=== PATIENT | male | born 1965 | race Caucasian/White ===

== ENCOUNTER 2018-04-17 09:04 | Emergency (ER) | payer OTHER, SELFPAY ==
[2018-04-17 09:08] VITALS: BP 149/88; PULSE 65; RESP 16; TEMP 37; O2SAT 99
--- NOTE | 2018-04-17 09:15 | ED.GENADUL ---
Disposition Clinical Impression: Insect bite Disposition: HOME Condition: Good Instructions: Tick Bite (ED), Lyme Disease (ED) Additional Instructions: At this time I do not believe you exhibit the signs or symptoms of a tick bite, however if you notice a change in your rash that looks like erythema migrans, you develop aches or pains, fevers or chills, please start taking the medication immediately. If you do start taking the medication, do not take it with a multivitamin, or milk or anything containing significant amounts of calcium. If you notice any worsening of your symptoms, or any new symptoms such as vomiting, diarrhea, fever, chills, shortness of breath, chest pain, numbness, weakness, or fainting , please return immediately to the emergency department for reevaluation. Please follow up with your primary care provider as soon as possible for reassessment and reevaluation. As always, it was a pleasure participating in your medical care today. Prescriptions: Doxycycline [Vibramycin] 100 mg PO BID 14 Days cap Referrals: Leilani Zamarripa MD, [place] [Primary Care Provider] - Medical Decision Making - Medical Decision Making This is a pleasant 52-year-old male who presents for evaluation of tick bite. Physical exam shows 2 lesions on his posterior legs on the left and one on the right by the mid thigh region, which appear to have a small scab but no evidence of erythema migrans, erythema nodosum, erythema whatsoever, retained tick had a retained tick body. He did not pluck any tick from his body early this morning. Signs and symptoms are not suggestive of Lyme disease at this time as he has no other systemic symptoms. I do not see any indication for prophylaxis or medication at this time, however patient will be given a prescription for doxycycline for which she needs to immediately take if he develops any systemic symptoms, or any signs of erythema migrans. I did draw pictures of erythema migrans for him and showed him pictures online and online resources for which to access for further information. I feel that the patient's bites are most likely secondary to some other arthropod side for a tick, but we have discussed red flags which to return and for which take medications and he understands. Patient will be discharged with close PCP follow-up. I have extensively reviewed the treatment plan and discharge instructions with the patient. I have addressed all patient concerns at this time. The patient was made aware of what symptoms to monitor for that would warrant a return to the emergency department. Discussed the plan with the patient, they demonstrate verbal understanding and agreement with our assessment and plan at this time. History of Present Illness - General Chief complaint: RashLesion Stated complaint: TICK BITE Time Seen by Provider: 04/17/18 09:15 - History of Present Illness Initial comments: This is a 52-year-old male who is very healthy who has no medical problems who presents today for evaluation of a insect bite. Patient states that he was in a shower this morning when he noticed to bite cotter on his posterior legs bilaterally. Neither was pruritic. No bleeding. Small scab was noted. He was concerned for a potential tick bite and came in for evaluation. The patient does admit to mild ache in his right thigh, but he feels this might of been from recent exercise. He denies any myalgias, arthralgias, headache, fever, chills, malaise. He denies any history of Lyme disease. He denies finding any ticks, or any retained bodies. He has no other complaints at this time. Past surgical history is positive for bunionectomy bilaterally and surgery on his right eye for a pterygium. Patient denies any IV or illicit drug use. He does take a regular multivitamin. He denies any pertinent family history. He has no other complaints at this time. - Related Data Multivitamin [Multivitamins] 1 tab PO DAILY 10/24/12 Thurston-3/Dha/Epa/Fish Oil [Fish Oil Dr 500 mg Softgel] 500 mg PO DAILY 09/18/15 Triamcinolone [Kenalog 0.025% Oint] 5 gm TP BID PRN #80 ml 11/04/16 Omeprazole 20 mg PO DAILY #90 tab-cap 10/20/17 Ibuprofen [Advil] 400 mg PO PRN PRN 03/02/18 Doxycycline [Vibramycin] 100 mg PO BID 14 Days cap 04/17/18 Allergies Allergy/AdvReac Type Severity Reaction Status Date / Time gluten Allergy Intermediate Unverified 03/04/18 08:53 naproxen Allergy Intermediate Skin Rash Unverified 03/04/18 08:53 Penicillins Allergy Intermediate Skin Rash Unverified 03/04/18 08:53 terbinafine HCl Allergy Intermediate Skin Rash Unverified 03/04/18 08:53 [From Lamisil] Review of Systems Other: 10 point review of systems was performed, pertinent positives and negatives are noted in the history of present illness. Past Medical History - Past Medical History Medical history: GERD CHRIS Surgical history: herniorraphy, other (right eye surgery, bilateral bunionectomy) - Social History Alcohol use: occasionally Drug use: none General Exam - Other Other exam information: 1.Const: Well-nourished, Well-developed, appearing stated age 2.Eyes: PERRL, no conjunctival injection, and symmetrical lids. 3.ENT: Atraumatic external nose and ears. Moist MM. Neck: Symmetric, trachea midline, No thyromegaly. 4.CVS: +S1/S2, No murmurs or gallops. Peripheral pulses 2+ and equal in all extremities. Brisk capillary refill in all extremities. 5.RESP: Unlabored respiratory effort. Clear to auscultation bilaterally. No wheezes rales or rhonchi 6.GI: Soft, Nontender/Nondistended, No hepatosplenomegaly. No guarding or rebound. 7.MSK: Normocephalic/Atraumatic, Extremities w/o deformity or ttp No cyanosis or clubbing, Normal movement of all extremities 8.Skin: Warm, Dry. No rashes or lesions. No evidence of erythema migrans, erythema nodosum, or other significant lesions. He does demonstrate 2 small punctate scabbed lesions roughly 2 mm in diameter. No evidence of retained tick head or tic body. No erythema, or halo or central clearing. 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 Sensation grossly intact, no focal neurologic deficits. 10.Psych: (AAO) x3. Appropriate mood and affect
== END 2018-04-17 09:24 | disposition home or self-care (01) ==
PROVIDERS: Emergency Provider Student in an Organized Health Care Education/Training Program; PCP Family Medicine
DX: S80.862A Insect bite (nonvenomous), left lower leg, initial encounter (principal); S70.361A Insect bite (nonvenomous), right thigh, initial encounter; W57.XXXA Bitten or stung by nonvenomous insect and other nonvenomous arthropods, initial encounter
CPT/HCPCS: 99283

== ENCOUNTER 2019-10-27 15:26 | Outpatient (CLI) | payer OTHER, SELFPAY ==
--- NOTE | 2019-10-27 15:30 | DI.RAD_ITS ---
EXAM: XR SHOULDER LT COMPLETE 2+V INDICATION: left shoulder pain M25.512, G89.29 CHRONIC PAIN. COMPARISON: RIGHT SHOULDER COMPLETE from 08/04/2013 TECHNIQUE: 2D digital imaging was performed. FINDINGS: No fracture or dislocation is seen. There are minimal degenerative changes at the AC joint. There i s no significant inferior spurring. The glenohumeral joint is unremarkable. No tendon or joint spac e calcifications are seen. The humeral head appears normally positioned. IMPRESSION: Minute minimal degenerative changes. DATA REPOSITORY: RADIATION DOSE DELIVERED:
--- NOTE | 2019-10-27 15:30 | DI.RAD_ITS ---
EXAM: XR CERVICAL SPINE COMP 4-5V INDICATION: neck and left shoulder pain/ do obliques please, M54.2 CERVICALGIA. COMPARISON: CERV SP.WITH OBL OR FLEX/EXT from 08/04/2013 TECHNIQUE: 2D digital imaging was performed. FINDINGS: There is mild patient motion on the view. The alignment is normal. The disc spaces are well maintai meme in height. There are mild facet joint degenerative changes, greatest at C 7- T1. The neural for tatyana are not optimally profiled. There is apparent neural foraminal narrowing at C6-7 bilaterally, left greater than. IMPRESSION: Facet degenerative changes greatest at C7-T1. Question of bilateral neural foraminal narrowing C6-7. DATA REPOSITORY: RADIATION DOSE DELIVERED:
== END 2019-10-27 15:46 ==
PROVIDERS: PCP Family Medicine; Visit Provider Family Medicine
DX: M25.512 Pain in left shoulder (principal); M54.2 Cervicalgia; M47.813 Spondylosis without myelopathy or radiculopathy, cervicothoracic region; G89.29 Other chronic pain; M19.012 Primary osteoarthritis, left shoulder
CPT/HCPCS: 72050; 73030

== ENCOUNTER 2020-06-21 02:06 | Outpatient (CLI) | payer OTHER, SELFPAY ==
[2020-06-21 17:19] LABS: ALT 91 U/L (16-63); AST 34 U/L (15-37); Albumin 4.3 g/dL (3.4-5.0); Alkaline Phosphatase 70 U/L (46-116); Anion Gap 5.4 mmol/L (3-11); BUN 19 mg/dL (7-18); Bilirubin, Total 0.3 mg/dL (0.2-1.0); CO2 30.6 mmol/L (21.0-32.0); CREATININE 1.16 mg/dL (0.70-1.30); Calcium 8.9 mg/dL (8.5-10.1); Chloride 102 mmol/L (98-107); Glucose 104 mg/dL (74-106); Potassium 3.8 mmol/L (3.5-5.1); Sodium 138 mmol/L (136-145); Total Protein 7.4 g/dL (6.4-8.2)
== END 2020-06-21 02:26 ==
PROVIDERS: PCP Family Medicine; Visit Provider Family Medicine
DX: R79.89 Other specified abnormal findings of blood chemistry (principal)
CPT/HCPCS: 36415; 80053

== ENCOUNTER 2020-08-10 02:19 | Outpatient (CLI) | payer OTHER, SELFPAY ==
[2020-08-13 12:10] LABS: COVID-19 RT-PCR Result NEGATIVE (Negative)
== END 2020-08-10 02:39 ==
PROVIDERS: PCP Family Medicine; Visit Provider Family Medicine
DX: Z20.828 Contact with and (suspected) exposure to other viral communicable diseases (principal); Z11.59 Encounter for screening for other viral diseases
CPT/HCPCS: U0003

== ENCOUNTER 2020-10-16 02:28 | Outpatient (CLI) | payer OTHER, SELFPAY ==
[2020-10-16 17:35] LABS: ALT 93 U/L (16-63); AST 32 U/L (15-37); Albumin 3.9 g/dL (3.4-5.0); Alkaline Phosphatase 81 U/L (46-116); Anion Gap 10.8 mmol/L (3-11); BUN 18 mg/dL (7-18); Bilirubin, Total 0.2 mg/dL (0.2-1.0); CO2 26.2 mmol/L (21.0-32.0); Calcium 8.8 mg/dL (8.5-10.1); Chloride 104 mmol/L (98-107); Glucose 106 mg/dL (74-106); Potassium 3.7 mmol/L (3.5-5.1); Sodium 141 mmol/L (136-145); Total Protein 7.2 g/dL (6.4-8.2)
== END 2020-10-16 02:29 | disposition home or self-care (01) ==
LOC: LBO 02:29
PROVIDERS: PCP Family Medicine; Visit Provider Family Medicine
DX: R79.89 Other specified abnormal findings of blood chemistry (principal)
CPT/HCPCS: 36415; 80053

== ENCOUNTER → 2021-03-12 14:12 | Outpatient (BNVA) | payer OTHER, SELFPAY | PROVIDERS: PCP Family Medicine; Referring Provider Family Medicine; Visit Provider Student in an Organized Health Care Education/Training Program | DX: S43.432A Superior glenoid labrum lesion of left shoulder, initial encounter (principal); X58.XXXA Exposure to other specified factors, initial encounter | CPT/HCPCS: 99203; 99213 ==

== ENCOUNTER → 2021-05-14 13:05 | Outpatient (BNVA) | payer OTHER, SELFPAY | PROVIDERS: PCP Family Medicine; Referring Provider Family Medicine; Visit Provider Student in an Organized Health Care Education/Training Program | DX: S43.432D Superior glenoid labrum lesion of left shoulder, subsequent encounter (principal); X58.XXXD Exposure to other specified factors, subsequent encounter | CPT/HCPCS: 99213 ==

== ENCOUNTER 2021-06-06 02:00 | Outpatient (CLI) | payer OTHER, SELFPAY ==
--- NOTE | 2021-06-06 06:30 | DI.MRI_ITS ---
Exam(s) MR UPPER JOINT LT WO CLINICAL HISTORY: persistent mechanical symptoms,slap lesion lt shoulder,s43.432a. TECHNIQUE: Multiplanar multisequence MRI was performed. COMPARISON: None FINDINGS: MR examination of the shoulder was performed according to the usual protocol. There is no significant effusion of the glenohumeral joint. Trace fluid in the subacromial subdeltoi d bursa. Bones and labrum: There is abnormal signal in the distal clavicle adjacent to the AC joint, mild flui d is noted in the joint. There is slight superior deformity of the myotendinous junction of the supr aspinatus consistent mild impingement this site.. Glenoid labrum is not well visualized on this noncontrast examination, requisition raises the possibi lity SL AP lesion and there are areas of cysts subtle signal change in the labrum both anteriorly and posteriorly in the superior portion of the labrum, this may well represent a nondisplaced SLAP tear. Rotator cuff: Supraspinatus, subscapularis, infraspinatus, and teres minor muscles and tendons show mildly abnormal signal consistent with tendinosis. No focal rotator cuff tear identified. Rotator interval structures are unremarkable with no evidence of a tear. Biceps tendon and anchor: Biceps tendon and anchor show normal signal and no evidence of a tear. Any ps tendon is normally positioned in the bicipital groove. IMPRESSION: Possible SLAP tear. Mild rotator cuff tendinosis without evidence of a significant rotator cuff tear . DATA REPOSITORY:
== END 2021-06-06 02:20 ==
PROVIDERS: PCP Family Medicine; Visit Provider Student in an Organized Health Care Education/Training Program
DX: M67.814 Other specified disorders of tendon, left shoulder (principal)
CPT/HCPCS: 73221

== ENCOUNTER → 2021-06-19 08:42 | Outpatient (BNVA) | payer OTHER, SELFPAY | PROVIDERS: PCP Family Medicine; Referring Provider Family Medicine; Visit Provider Student in an Organized Health Care Education/Training Program | DX: S43.432D Superior glenoid labrum lesion of left shoulder, subsequent encounter (principal); M75.52 Bursitis of left shoulder; X58.XXXD Exposure to other specified factors, subsequent encounter | CPT/HCPCS: 99214 ==

== ENCOUNTER 2021-07-09 08:31 | Outpatient (CLI) | payer OTHER, SELFPAY ==
[2021-07-09 11:06] LABS: Source Nasal/Nares
[2021-07-09 17:36] LABS: COVID-19 PCR Negative (Negative)
== END 2021-07-09 08:32 | disposition home or self-care (01) ==
LOC: LBO 08:31
PROVIDERS: PCP Family Medicine; Visit Provider Student in an Organized Health Care Education/Training Program
DX: Z20.822 Contact with and (suspected) exposure to COVID-19 (principal); Z01.818 Encounter for other preprocedural examination
CPT/HCPCS: 87635

== ENCOUNTER 2021-07-12 08:48 | Day surgery (SDC) | payer OTHER, SELFPAY ==
[2021-07-12] VITALS (9 sets, daily range): BP systolic 108–146; BP diastolic 77–102; PULSE 68–78; RESP 14–20; TEMP 35.8–36.8; O2SAT 69–100; BMI 29.4
--- NOTE | 2021-07-12 07:10 | W.ANESPRE ---
General Info Date of Service Date Performed: 07/12/21 Height: 5 ft 7 in Weight: 85.275 kg Body Mass Index (BMI): 29.4 Surgical Procedure: Operation Date: 07/12/21 11:10 Proposed Procedures Side Surgeon p Shoulder Arthroscopy w/extensive debridement, biceps tenodesis, and subacromial decompression Left John Solares MD Meds Allergies and Home Medications Allergies Allergy/AdvReac Type Severity Reaction Status Date / Time gluten Allergy Intermediate Verified 07/12/21 09:11 naproxen Allergy Intermediate Skin Rash Verified 07/12/21 09:11 Penicillins Allergy Intermediate Skin Rash Verified 07/12/21 09:11 terbinafine HCl Allergy Intermediate Skin Rash Verified 07/12/21 09:11 [From Lamisil] losartan AdvReac felt poorly Verified 07/12/21 09:11 Home Medication Medication Instructions Recorded multivitamin 1 tab PO DAILY 10/24/12 Fish Oil 500 mg PO DAILY 09/18/15 triamcinolone acetonide 5 gm TOPICAL BID PRN #80 ml 11/04/16 omeprazole 20 mg PO DAILY #90 tab-cap 10/20/17 cholecalciferol (vitamin D3) 125 125 mcg PO DAILY 10/27/19 mcg (5,000 unit) tablet aspirin 81 mg PO DAILY 14 Days #14 tab 07/12/21 ibuprofen 800 mg PO BID PRN #40 tab 07/12/21 oxycodone 5 - 10 mg PO Q4H PRN #14 tab 07/12/21 Current Visit Medications: Current Medications Generic Name Dose Route Start Last Admin Trade Name Freq PRN Reason Stop Dose Admin Ringer's Solution 1,000 mls @ 100 mls/hr 07/12/21 06:00 IV 08/10/21 23:59 INFUSION WANDER Cefazolin Sodium/Dextrose 2 gm in 50 mls @ 100 mls/hr 07/12/21 06:00 Ancef Duplex IVPB 07/12/21 16:00 PREOP WANDER IV Miscellaneous Supplies 1 each 07/12/21 06:00 Iv Access IV 08/10/21 23:59 DIRECTED WANDER Sodium Chloride 0 ml 07/12/21 06:00 Normal Saline Flush 10 Ml Syr IV 08/10/21 23:59 PRN PRN Sodium Chloride 0 ml 07/12/21 06:00 Normal Saline 10 Ml Vial IJ 08/10/21 23:59 DIRECTED PRN Sterile Water 0 ml 07/12/21 06:00 Water,Injection,Sterile 10 Ml Vial IJ 08/10/21 23:59 DIRECTED PRN PFSH Active Problems Active Problems: Problem Status Onset Code Bursitis of left shoulder M75.52 SLAP lesion of left shoulder S43.432A Skin tag L91.8 Elevated LFTs R79.89 Strain of right quadriceps muscle, fascia and tendon, initial encounter 03/04/18 S76.111A Plantar fasciitis, bilateral 03/16/17 M72.2 Peripheral polyneuropathy 06/05/16 G62.9 Obstructive sleep apnea syndrome 03/01/13 G47.33 Meralgia paresthetica of left side 06/05/16 G57.12 Mantoux: positive R76.11 Hearing loss 03/07/14 H91.90 Diverticula of colon 10/08/17 K57.30 Dermatitis herpetiformis 06/15/14 L13.0 Chronic left shoulder pain 02/25/18 M25.512, G89.29 Cervical pain 12/18/14 M54.2 Annual physical exam 04/10/15 Z00.00 Abnormal auditory perception 03/27/14 H93.299 Abnormal EKG 04/26/14 R94.31 Medical History Active Problem List Abnormal EKG (Chronic 04/26/14) Abnormal auditory perception (Chronic 03/27/14) Annual physical exam (Acute 04/10/15) Cervical pain (Chronic 12/18/14) Chronic left shoulder pain (Chronic 02/25/18) Dermatitis herpetiformis (Chronic 06/15/14) Diverticula of colon (Chronic 10/08/17) Hearing loss (Chronic 03/07/14) Mantoux: positive (Chronic) Meralgia paresthetica of left side (Chronic 06/05/16) Obstructive sleep apnea syndrome (Chronic 03/01/13) Peripheral polyneuropathy (Chronic 06/05/16) Plantar fasciitis, bilateral (Chronic 03/16/17) Strain of right quadriceps muscle, fascia and tendon, initial encounter (Chronic 03/04/18) Elevated LFTs (Acute) Skin tag (Acute) SLAP lesion of left shoulder (Acute) Bursitis of left shoulder (Acute) Medical History CHRIS (obstructive sleep apnea) Surgical History Surgical History (Updated 07/12/21 @ 09:08 by Nu Brito) BUNIONECTOMY Colonoscopy - MAC (09/30/17) CONCUSION (~1972) Hx of vasectomy PROCEDURES PTERYGIUM EXCISION NEC, 2010 right eye Tobacco Smoking/Tobacco Use Status: Never Passive smoking exposure: Yes Second hand exposure: Yes Alcohol Alcohol Intake: current Alcohol intake frequency: a few times a month Alcohol type: hard liquor Substance Use Substance use: Never Substance use type: does not use Vital Signs and Lab Results Lab Results Blood Type / Crossmatch: No Data to Display Complete Blood Count: No Data to Display Complete Metabolic Panel: No Data to Display Liver Function Panel: No Data to Display Coagulation Panel: No Data to Display Cardiac Panel: No Data to Display Arterial Blood Gas: No Data to Display Venous Blood Gas: No Data to Display Pancreas Panel: No Data to Display Thyroid Panel: No Data to Display Infectious Disease: Coronavirus (COVID-19)(PCR) Negative (Negative) 07/09/21 08:32 07/09/21 Coronavirus 2019 Source Nasal/Nares 07/09/21 08:32 07/09/21 Blood Cultures: No Data to Display Toxicology Panel: No Data to Display Anesthesia Assessment and Plan Anesthesia History Personal History: No History of Anesthesia Complications Family History: No Family History of Anesthesia Complications Exercise Tolerance Exercise Tolerance: Metabolic Equivalents>4 Pertinent Negatives Pertinent Negatives: No Symptoms of GERD (Med controlled), No Major Cardiovascular Symptoms or Complaints, No Major Pulmonary Symptoms or Complaints and No History of CVA/TIA Cardiac & Pulmonary Exam Cardiac Exam: Normal S1/S2 Heart Sounds Pulmonary Exam: Clear Bilateral Breath Sounds Implantable Cardiac Device Does patient have a Pacemaker or an ICD?: No Airway Exam Known Difficult Airway: No Mallampati Class: 3 Mouth Opening: Normal (> 3cm) Thyromental Distance: Greater than 3 cm Neck Range of Motion: Full ROM Neck Circumference: Normal Teeth Condition: Normal Dentition ASA Classification ASA Score: ASA 2 Emergency Case?: No NPO Status NPO Status: NPO Clears >2 hours, Solids >8 hours Anesthesia Plan Resuscitation Status: Full Code Anesthesia Technique: General Anesthesia Airway Planned: Endotracheal Tube Pain Management: Surgeon and patient request nerve block Monitors Used: Standard Monitors
[2021-07-12] MEDS: Lactated Ringers 1,000 ML 100 ML IV ×2 (10:00→13:33)
--- NOTE | 2021-07-12 10:40 | W.ANESNERVE ---
Nerve Block Single Injection Procedure Date and Time Date Performed: 07/12/21 Procedure Start: 10:16 Location Where Procedure Performed Procedure Location: Day Surgery Unit Reason Performed: Postoperative Analgesia Requesting Provider: John Solares Timeout Performed Timeout Performed: Yes Monitoring Used ECG, Blood Pressure and SpO2 Sterility Sterility: Hand Hygiene and Surgical Cap Sedation Given During Procedure Sedation Given (Indicate Dose Given): No Sedation given Patient Mental Status Patient Mental Status: Awake Nerve Block 1st Nerve Block: Laterality: Left Block Type: Interscalene Needle / Catheter Used: 100mm SonoPlex II Local Anesthetic Bolus (Indicate Dose Given): Injected in 3-5ml increments after negative blood aspiration, Bupivacaine 0.5% Dose:: 10 ml and Exparel Dose:: 10 ml Additives (Indicate Dose Given): None Ultrasound: Sterile probe cover and gel used Ultrasound Image Saved?: Yes Nerve Stimulator: Not Used Paresthesia: None Procedure Tolerated: No Complications Procedure Outcome: Successful Performed By: Lonnie Pena
[2021-07-12] MEDS: ceFAZolin 2 GM/50 ML BAG IVPB (12:29)
--- NOTE | 2021-07-12 13:43 | W.PM.DSUDISC ---
Discharge Plan Disposition Patient Disposition: HOME Condition: Stable Discharge Details Reason For Visit: Left shoulder surgery Attending Provider: John Solares Primary Care Provider: Leilani Zamarripa Home Meds and New Rx's Prescriptions: New ibuprofen 800 mg tablet 800 mg PO BID PRN (Reason: pain, moderate) Qty: 40 RF: 0 aspirin 81 mg tablet,delayed release (DR/EC) 81 mg PO DAILY 14 Days Qty: 14 RF: 0 oxycodone 5 mg tablet 5 - 10 mg PO Q4H PRN (Reason: moderate to severe pain) Qty: 14 RF: 0 Continued cholecalciferol (vitamin D3) 125 mcg (5,000 unit) tablet 125 mcg PO DAILY RF: 0 triamcinolone acetonide 80 GM ointment 5 gm Topical BID PRNQty: 80 RF: 2 omeprazole 20 MG tablet,delayed release (DR/EC) 20 mg PO DAILY Qty: 90 RF: 12 multivitamin 1 EACH capsule 1 tab PO DAILY RF: 0 Fish Oil 500 MG capsule,delayed release(DR/EC) 500 mg PO DAILY RF: 0 Discontinued ibuprofen [Advil] 200 MG tablet 400 mg PO PRN PRNRF: 0 Discharge Instructions Additional Instructions: Surgery: Left shoulder arthroscopy with biceps tenodesis, extensive debridement, and subacromial compression. Activity: You should gradually increase range of motion motion and use of your shoulder. Please perform daily stretching exercises. You may use your shoulder for all regular activities. Avoid heavy lifting, reaching overhead, and lifting away from body for approximately 6 to 8 weeks. You may use the sling whenever you are out of the house for a few weeks. At home it is best to remove the sling and rest the arm on a pillow at your side or support the operative side with your other hand. A physical therapy prescription will be sent electronically to start in about 2 weeks. Prescriptions: Aspirin 81 mg take 1 daily to prevent a blood clot for 2 weeks Ibuprofen 800 mg take 1 every 12 hours with a meal as needed for moderate pain Oxycodone 5 mg take 1-2 every 4-6 hours as needed for severe pain You may use [id number] Tylenol (acetaminophen) as needed for mild pain. These pain medications may be taken all at once or in different combinations as needed. Also, recommend Colace (docusate) as a stool softener as surgery and pain medicine cause constipation. Dressings: Remove shoulder bandage after 3 days. Leave the sticky Steri-Strips in place until they fall off or remove them after you shower. Cover the incisions with Band-Aids or leave them open to air. You may shower after 5 days. Follow-up: 10-[address] Solares You may take off the leg compression stockings this evening at home. You may also leave them on a few days longer if you have a history of leg swelling or edema. Let us know right away if you develop any redness, drainage, fevers, chest pain, or trouble breathing. Do not drink alcohol or drive for at least 24 hours after anesthesia. Please call the office during business hours with any questions or concerns. Discharge Orders Discharge Orders: Discharge Order (Routine); Ordered 07/12/21 Ordered By: John Solares DS: Diagnosis Discharge Diagnosis (1) Bursitis of left shoulder: Status: Acute (2) SLAP lesion of left shoulder: Status: Acute
[2021-07-12] MEDS: EPINEPHrine 30 MG/30 ML VIAL (13:44)
--- NOTE | 2021-07-12 14:56 | W.ANESPOSTOP ---
Postoperative Evaluation Date, Time and Location Date Performed: 07/12/21 Time Performed: 14:57 Patient Location: Day Surgery Unit Vital Signs Most Recent Imported Vital Signs: Most Recent Vital Signs Temp Pulse Resp BP Pulse Ox 36.7 C 68 15 108/86 96 07/12/21 14:37 07/12/21 14:37 07/12/21 14:37 07/12/21 14:37 07/12/21 14:37 Pain Score Most Recent Pain Score: Most Recent Pain Score Pain Level 0 07/12/21 14:37 Assessment Mental Status: Awake (Alert & Oriented to Patient Baseline) Airway and Respiratory Function: Patent airway with normal (patient baseline) respiratory exam Cardiovascular Function: Hemodynamically Stable Hydration Status: Adequately Hydrated Nausea & Vomiting: No Nausea or Vomiting Pain: Pt. Denies Any Pain Peripheral Nerve Block: Regional nerve block not resolved at time of post operative discharge Postoperative Comments:: Reports sore throat. Discussed that should resolve in 24-48 hours and to let us know if does not resolve.
--- NOTE | 2021-07-12 15:47 | ROE_ITS ---
Date of service: 07/12/21 Time of Service: 13:15 Operative Note Operative Note DATE OF PROCEDURE: 07/12/21 PRE-OP DIAGNOSIS: Left: 1. SLAP tear 2. Bursitis POST-OP DIAGNOSIS: same PROCEDURE: Left: 1. Arthroscopic biceps tenodesis, CPT# 80547. This involved arthroscopically suturing and reattaching the long head of the biceps tendon to the proximal humerus at the superior margin of the bicipital groove with a screw at the correct tension. 2. Extensive debridement, CPT# 61426. This involved using arthroscopic hand instruments, power instruments, and radiofrequency instruments to release the long head of the biceps tendon and debride areas of labral tearing, synovitis, SLAP tearing, and partial articular rotator cuff tearing within the glenohumeral joint anteriorly, superiorly and posteriorly. 3. Subacromial decompression, CPT# 50844. This involved using arthroscopic power instruments and a radiofrequency wand to complete a bursectomy. The faculty i on call medical assistant was medically required in order to help assist in techniques above, which require positioning the arm, holding the arthroscope, and manipulating multiple instruments and sutures at the same time. This cannot be done without the help of an experienced faculty i on call medical assistant. SURGEON: John Solares PHP ARCHITECT: Jennifer Peralta ANESTHESIA TYPE: General LMA/ETT and Primary Nerve Block Refer to Anesthesia Record ESTIMATED BLOOD LOSS: 5 PATHOLOGY: none sent Patient was transported to: PACU Patient's condition: stable Implants: Arthrex: 4.75mm SwiveLocks x 1 Indications: The patient was diagnosed with the above conditions and appropriately indicated for surgical intervention. Please see complete medical record for details. Findings: Exam under anesthesia: Full range of motion, no instability Glenohumeral joint: Anterior labral fraying, unstable biceps tendon anchor with type II SLAP tear, minimal posterior labral fraying. Mild anterior margin supraspinatus articular sided partial tear fraying. Bulbous medial superior subscapularis with no tearing or detachment from lesser tuberosity. Probed as cyst without any fluid expressed. Intact infraspinatus. Intact articular cartilage. Subacromial space: Moderate bursitis. Intact rotator cuff. No subacromial bone spur. Procedure Description: In the operating room, general anesthesia was induced. Bilateral shoulders were examined. The patient was positioned in the beachchair position. All bony prominences were well-padded. Preoperative antibiotics were administered. The shoulder was prepped and draped in the usual sterile fashion. The correct patient, procedure, and side of the procedure were all verified prior to incision. Starting through the posterior portal a standard complete diagnostic arthroscopy was performed of the glenohumeral joint including inspection of the long head of the biceps, anterior and superior labrum, subscapularis tendon, supraspinatus and infraspinatus tendons, and axillary recess. The glenoid and humeral head cartilage as well as the posterior labrum were inspected from an anterior viewing portal. Significant findings and interventions noted above. Rigid cannula was inserted anteriorly. An all-arthroscopic suprapectoral biceps tenodesis was performed through an anterior portal using a Loop N Tack method with a SutureTape FiberLink cinched around and through the tendon. The biceps was tenotomized from the labrum and fixated with a suture anchor at the superior margin of the bicipital groove. The biceps stump on either and was smoothed and mushroomed using the radiofrequency wand. Starting through the posterior portal, the arthroscope was directed into the subacromial space. A lateral 50 yard line lateral portal was omitted. A combination of power instruments and a radiofrequency ablator were used to debride bursitis anteriorly, posteriorly, and laterally. Coracoacromial ligament was preserved. The bursectomy was completed rotating the arm internal/external rotation and the rotator cuff was thoroughly inspected with findings noted above. The shoulder was drained of arthroscopic fluid. All portal sites were copiously irrigated. These incisions were closed using 3-0 Monocryl in a buried fashion and then covered with Mastisol, Steri-Strips, Xeroform, dry gauze, and ABDs. The dressings were covered and secured with Medipore tape. The operative extremity was placed into a sling for immobilization. The patient awoke from anesthesia without complication and was transferred to the recovery room in a stable condition.
== END 2021-07-12 16:15 | disposition home or self-care (01) ==
PROVIDERS: PCP Family Medicine; Visit Provider Student in an Organized Health Care Education/Training Program
PROC: (CPT 29805; principal; 2021-07-12 11:00)
DX: M75.52 Bursitis of left shoulder (principal); S43.432A Superior glenoid labrum lesion of left shoulder, initial encounter; X58.XXXA Exposure to other specified factors, initial encounter; G47.33 Obstructive sleep apnea (adult) (pediatric); M75.82 Other shoulder lesions, left shoulder
CPT/HCPCS: 29828; 29823; 29826; J0690; J1100; J2370; J2405; J2704

== ENCOUNTER → 2021-07-24 09:14 | Outpatient (BNVA) | payer OTHER, SELFPAY | PROVIDERS: PCP Family Medicine; Referring Provider Family Medicine; Visit Provider Student in an Organized Health Care Education/Training Program | DX: Z47.89 Encounter for other orthopedic aftercare (principal); M75.52 Bursitis of left shoulder ==

== ENCOUNTER → 2021-09-17 07:57 | Outpatient (BNVA) | payer OTHER, SELFPAY | PROVIDERS: PCP Family Medicine; Referring Provider Family Medicine; Visit Provider Student in an Organized Health Care Education/Training Program | DX: Z47.89 Encounter for other orthopedic aftercare (principal) ==

== ENCOUNTER 2022-09-05 01:32 | Outpatient (CLI) | payer OTHER, SELFPAY ==
[2022-09-05 07:30] LABS: HGB 14.7 g/dL (13.5-17.5); MCH 31.1 pg (27.0-33.0); MCV 89 fL (80-95); MPV 10.3 fL (8.0-11.0); Platelet Count 209 10^3/uL (130-400); RBC 4.73 10^6/uL (4.36-5.78); RDW 12.4 % (11.8-14.1); RDW-SD 40.8 fL; WBC 5.57 10^3/uL (4.4-10.8)
[2022-09-05 07:52] LABS: ALT 54 U/L (16-63); AST 31 U/L (15-37); Albumin 3.9 g/dL (3.4-5.0); Alkaline Phosphatase 75 U/L (46-116); BUN 25 mg/dL (7-18); Bilirubin, Total 0.5 mg/dL (0.2-1.0); CREATININE 1.1 mg/dL (0.70-1.30); Calculated LDL 130 mg/dL (<100); Chloride 105 mmol/L (98-107); Cholesterol 206 mg/dL (<200); Estimated GFR 78.79 (mL/min/1.73m2); Glucose 119 mg/dL (74-106); HDL Cholesterol 61 mg/dL (40-60); Potassium 3.6 mmol/L (3.5-5.1); Sodium 141 mmol/L (136-145); TSH (W/Ref FT4) 1.37 uIU/mL (0.36-3.74); Total Protein 7.3 g/dL (6.4-8.2); Triglyceride 79 mg/dL (<150)
[2022-09-05 10:10] LABS: Lab Add On Test DONE
[2022-09-05 23:10] LABS: Estimated Average Glucose 114 mg/dL; Hemoglobin A1C 5.6 % (<5.7)
== END 2022-09-05 01:33 | disposition home or self-care (01) ==
PROVIDERS: PCP Family Medicine; Visit Provider Family Medicine
DX: Z00.00 Encounter for general adult medical examination without abnormal findings (principal); R73.09 Other abnormal glucose
CPT/HCPCS: 36415; 80053; 80061; 85027; 83036; 84443

== ENCOUNTER 2022-09-21 16:00 | Emergency (ER) | payer OTHER, SELFPAY ==
[2022-09-21 16:12] VITALS: BP 117/72; PULSE 97; RESP 18; TEMP 36.9; O2SAT 95
[2022-09-21] MEDS: Ondansetron O.D.T. 4 MG TABEF (17:27)
[2022-09-21] MEDS: Normal Saline 1,000 ML 1000 ML IV (18:34)
[2022-09-21 18:36] LABS: Abs Immature Grans 0.03 10^3/uL (0.0-0.06); Absolute Basophil Count 0.02 10^3/uL (0.0-0.2); Absolute Monocyte Count 0.28 10^3/uL (0.1-0.8); Absolute Neutrophil Count 8.62 10^3/uL (1.2-6.7); Basophils % 0.2; HCT 45.5 % (40.0-50.0); HGB 15.4 g/dL (13.5-17.5); Immature Grans % 0.3; Lymphocytes % 2.2; MCH 30.9 pg (27.0-33.0); MCHC 33.8 % (32.0-36.0); MCV 91 fL (80-95); MPV 10.5 fL (8.0-11.0); Monocytes % 3.1; Neutrophils % 94.2; Platelet Count 208 10^3/uL (130-400); RBC 4.99 10^6/uL (4.36-5.78); RDW 12.3 % (11.8-14.1); RDW-SD 40.7 fL; WBC 9.15 10^3/uL (4.4-10.8)
[2022-09-21 18:52] LABS: ALT 32 U/L (16-63); AST 21 U/L (15-37); Albumin 2.8 g/dL (3.4-5.0); Alkaline Phosphatase 57 U/L (46-116); Anion Gap 4.7 mmol/L (3-11); BUN 20 mg/dL (7-18); Bilirubin, Total 0.4 mg/dL (0.2-1.0); CO2 24.3 mmol/L (21.0-32.0); CREATININE 0.9 mg/dL (0.70-1.30); Chloride 114 mmol/L (98-107); Estimated GFR 100.24 (mL/min/1.73m2); Glucose 104 mg/dL (74-106); Lipase 22 U/L (73-393); Potassium 3.2 mmol/L (3.5-5.1); Sodium 143 mmol/L (136-145); Total Protein 5.2 g/dL (6.4-8.2)
[2022-09-21 18:55] LABS: Bilirubin Negative (Negative); Blood Negative (Negative); Clarity Clear (Clear); Glucose Negative (Negative); Ketones Negative (Negative); Leukocyte Esterase Negative (Negative); Nitrite Negative (Negative); Specific Gravity 1.025 (1.005-1.025); Urobilinogen 0.2 EU/dL (Up TO 0.2)
[2022-09-21 18:55] LABS: Calcium 6.4 mg/dL (8.5-10.1)
--- NOTE | 2022-09-21 19:00 | RT.EKG_ITS ---
APPROVED REPORT Exam: Resting ECG Reason for Exam: Hypocalcemia Patient Location: E HR:96 bpm ECG Measurements Heart Rate 96 AXIS MO 174 P -4 QRSd 91 QRS -49 QT 343 T 47 QTc 433 Conclusion Sinus rhythm Inferior Q >35mS, II III aVF - previously noted
--- NOTE | 2022-09-21 19:49 | ED.GENADUL_ITS ---
Discharge Plan Disposition Patient Disposition: Home Condition: Improving Discharge Details Clinical Impression: Nausea & vomiting, Hypocalcemia, Hypokalemia Primary Care Provider: Leilani Zamarripa ED Provider: Natalio Leon Home Meds and New Rx's Prescriptions: New ondansetron 4 mg tablet,disintegrating 4 mg PO TID PRN3 Days Qty: 9 0RF calcium carbonate [Calcium 500] 500 mg calcium (1,250 mg) tablet,chewable 500 mg PO DAILY Qty: 7 0RF Continued metoprolol succinate 25 mg tablet extended release 24 hr See Rx Instructions PO DAILY Qty: 135 5RF Rx Instructions: 1 in am and 1/2tab in PM orally daily; cholecalciferol (vitamin D3) 125 mcg (5,000 unit) tablet 125 mcg PO DAILY triamcinolone acetonide 80 GM ointment 5 gm Topical BID PRNQty: 80 Rx Instructions: 0.1% omeprazole 20 MG tablet,delayed release (DR/EC) 20 mg PO DAILY Qty: 90 12RF multivitamin 1 EACH capsule 1 tab PO DAILY Fish Oil 500 MG capsule,delayed release(DR/EC) 500 mg PO DAILY ibuprofen 800 mg tablet 800 mg PO BID PRN (Reason: pain, moderate) Qty: 40 0RF Discharge Instructions Instructions: Hypokalemia (ED), Acute Nausea and Vomiting (ED), Hypocalcemia (ED) Additional Instructions: Zofran as directed. Be sure to have foods high in electrolytes. I have given you a small supplementation of calcium, take this as directed. Please watch for new or worsening symptoms and return to the ER for any concerns. As we discussed, your calcium and potassium are both low today. I would like you to contact your primary care provider tomorrow to discuss your ER visit and need for outpatient reevaluation. You will likely need to have your electrolytes rechecked and if they remain low you may require further work-up and/or potential supplementation. Discharge Data Discharge Date/Time-TO BE ENTERED AT DEPARTURE: 09/21/22 21:03 Medical Decision Making This is a 57-year-old male presenting for nausea and vomiting that began around 9:00 this morning. Clinically he appears well, nontoxic. He appears hemodynamically stable. Plan to obtain IV access, give IV fluid, Zofran, and routine screening laboratory values. Laboratory values reveal a white blood cell count of 9.15, no evidence of anemia or thrombocytopenia. Absolute neutrophils of 8.62. Electrolytes reveal a sodium of 143 potassium 3.2 anion gap 4.7 creatinine 0.9 with a GFR of 100.24. Glucose 104. Calcium 6.4. LFTs unremarkable, lipase 22. Urinalysis unremarkable. Given his potassium and calcium, will obtain EKG. patient denies any muscle cramping or spasms, weakness, paresthesias, confusion, etc. Plan to provide IV calcium supplementation as well as oral calcium and magnesium supplementation On reevaluation patient remains asymptomatic. Reports significant improvement of his symptoms with the Zofran. He is now tolerating p.o. intake, ice, tracy zulma without difficulty. We discussed his electrolyte abnormalities, tells me he has recently changed his diet secondary to concern of elevated glucose levels. He reports today no p.o. intake. Denies any diarrhea. We did discuss food and drink high in electrolytes, potassium, calcium, etc. I will also provide a short-term prescription of oral calcium as it is level today it was quite low at 6.4 although this appears to be an incidental finding as he is otherwise asymptomatic. IV hydration has completed. Once again reassessed the patient. He reports no vomiting while under my care and states that he is asymptomatic now that he has been given Zofran. Clinically he appears well, nontoxic, and is comfortable with discharge at this time. We did discussed the importance of outpatient reevaluation and follow-up of his electrolytes. Standard discharge and return precautions were provided. Patient understands, is agreeable to this plan, and has no additional questions or concerns upon discharge. This documentation was generated using [employer]ation system, please disregard any oddities of phrase or misspellings. Medical Records Medical records reviewed: Yes I reviewed the patient's medical records. Lab Data Lab results reviewed: Yes I reviewed the patient's lab results. Labs: Laboratory Tests Range/Units 09/21/22 09/21/22 09/21/22 18:25 18:25 18:45 WBC (4.4-10.8) 10^3/uL 9.15 RBC (4.36-5.78) 10^6/uL 4.99 Hgb (13.5-17.5) g/dL 15.4 Hct (40.0-50.0) % 45.5 MCV (80-95) fL 91 MCH (27.0-33.0) pg 30.9 MCHC (32.0-36.0) % 33.8 RDW (11.8-14.1) % 12.3 Plt Count (130-400) 10^3/uL 208 MPV (8.0-11.0) fL 10.5 Immature Gran % 0.3 Neutrophils % 94.2 Lymphocytes % 2.2 Monocytes % 3.1 Eosinophils % 0.0 Basophils % 0.2 Nucleated RBC % (0.0-0.3) % 0.0 Absolute Neutrophils (1.2-6.7) 10^3/uL 8.62 H Absolute Lymphocytes (1.2-3.4) 10^3/uL 0.20 L Absolute Monocytes (0.1-0.8) 10^3/uL 0.28 Absolute Eosinophils (0.0-0.7) 10^3/uL 0.00 Absolute Basophils (0.0-0.2) 10^3/uL 0.02 Sodium (136-145) mmol/L 143 Potassium (3.5-5.1) mmol/L 3.2 L Chloride (98-107) mmol/L 114 H Carbon Dioxide (21.0-32.0) mmol/L 24.3 Anion Gap (3-11) mmol/L 4.7 BUN (7-18) mg/dL 20 H Creatinine (0.70-1.30) mg/dL 0.9 Est GFR (CKD-EPI 2020) (mL/min/1.73m2) 100.24 Glucose (74-106) mg/dL 104 Calcium (8.5-10.1) mg/dL 6.4 L Total Bilirubin (0.2-1.0) mg/dL 0.4 AST (15-37) U/L 21 ALT (16-63) U/L 32 Alkaline Phosphatase (46-116) U/L 57 Total Protein (6.4-8.2) g/dL 5.2 L Albumin (3.4-5.0) g/dL 2.8 L Lipase (73-393) U/L 22 Urine Color (Yellow) Yellow Urine Clarity (Clear) Clear Urine pH (5-8) 6.0 Ur Specific Thornton (1.005-1.025) 1.025 Urine Protein (Negative) mg/dL Negative Urine Ketones (Negative) mg/dL Negative Urine Blood (Negative) Negative Urine Nitrite (Negative) Negative Urine Bilirubin (Negative) Negative Urine Urobilinogen (Up TO 0.2) EU/dL 0.2 Ur Leukocyte Esterase (Negative) Negative Urine Glucose (Negative) mg/dL Negative ECG Data Attestation: I personally reviewed and interpreted this ECG (s) as follows: Interpretation: Sinus rhythm, ventricular rate of 96, no STEMI. Inferior Q waves, previously noted. HPI General Mode of arrival: ambulatory . Date/Time Provider Initiated Documentation: 09/21/22 16:01 . Limitations to Documentation: no limitations . Information obtained by: patient . HPI Narrative: This is a 57-year-old gentleman, past medical history that includes hypertension, GERD, PTSD, sleep apnea, presenting to the ER for evaluation of nausea and vomiting that began this morning around 0900, reports vomiting every hour or so. Reports has not been able to hold down any food, concern for dehydration. Patient states that he does have a hiatal hernia and at the time of vomiting it is quite uncomfortable but otherwise denies any pain whatsoever. He denies recent illness or sick contacts. He denies fever, chest pain, shortness of breath, back pain, dysuria, diarrhea or constipation. Denies previous abdominal surgery. Related Data Home Medications Medication Instructions Recorded Confirmed multivitamin 1 tab PO DAILY 10/24/12 09/21/22 omega 3-dha 60 mg-epa 90 mg-fish 500 mg PO DAILY 09/18/15 06/23/22 oil 500 mg capsule, delayed release (Fish Oil) triamcinolone acetonide 0.025 % 5 gm topical BID PRN #80 mL 11/04/16 09/21/22 topical ointment omeprazole 20 mg tablet,delayed 20 mg PO DAILY #90 tab-caps 10/20/17 06/23/22 release cholecalciferol (vitamin D3) 125 125 mcg PO DAILY 10/27/19 09/21/22 mcg (5,000 unit) tablet ibuprofen 800 mg tablet 800 mg PO BID PRN pain, moderate 07/12/21 06/23/22 #40 tabs metoprolol succinate 25 mg See Rx Instructions PO DAILY #135 06/23/22 09/21/22 tablet,extended release 24 hr tabs calcium carbonate 500 mg calcium 500 mg PO DAILY #7 tabs 09/21/22 (1,250 mg) chewable tablet (Calcium 500) ondansetron 4 mg disintegrating 4 mg PO TID PRN 3 days #9 tabs 09/21/22 tablet Previous Rx's Medication Instructions Recorded omeprazole 20 mg tablet,delayed 20 mg PO DAILY #90 tab-caps 10/20/17 release ibuprofen 800 mg tablet 800 mg PO BID PRN pain, moderate 07/12/21 #40 tabs metoprolol succinate 25 mg See Rx Instructions PO DAILY #135 06/23/22 tablet,extended release 24 hr tabs calcium carbonate 500 mg calcium 500 mg PO DAILY #7 tabs 09/21/22 (1,250 mg) chewable tablet (Calcium 500) ondansetron 4 mg disintegrating 4 mg PO TID PRN 3 days #9 tabs 09/21/22 tablet Allergies Allergy/AdvReac Type Severity Reaction Status Date / Time gluten Allergy Intermediate Verified 09/21/22 16:14 naproxen Allergy Intermediate Skin Rash Verified 09/21/22 16:14 Penicillins Allergy Intermediate Skin Rash Verified 09/21/22 16:14 terbinafine HCl Allergy Intermediate Skin Rash Verified 09/21/22 16:14 [From Lamisil] amlodipine AdvReac Intermediate rash Verified 09/21/22 16:14 losartan AdvReac felt poorly Verified 09/21/22 16:14 General Stated Complaint: Nausea/Vomit/Diar GANESH: 4 Review of Systems Constitutional Constitutional: Denies fatigue, Denies fever(s) and Denies weakness Cardiovascular Cardiovascular: Denies chest pain and Denies dyspnea Respiratory Respiratory: Denies cough and Denies dyspnea Gastrointestinal Gastrointestinal: Denies abdominal pain, Denies constipation, Denies diarrhea, Reports nausea and Reports vomiting Genitourinary Genitourinary: Denies dysuria Musculoskeletal Musculoskeletal: Denies back pain, Denies muscle cramps, Denies numbness and Denies tingling Integumentary/Breasts Skin/Breast: Denies rash Neurologic Neurologic: Denies numbness, Denies tingling and Denies weakness Endocrine Endocrine: Denies fatigue PFSH All Active Problems (Updated 09/21/22 @ 20:52 by AALIYAH Matute) Nausea & vomiting (Acute) Hypocalcemia (Acute) Hypokalemia (Acute) Elevated glucose (Acute) Hypertension (Chronic) History of arthroscopy of left shoulder (Acute 07/12/21) With biceps tenodesis Abnormal EKG (Chronic 04/26/14) BRUGADA TYPE PATTERN Abnormal auditory perception (Chronic 03/27/14) Annual physical exam (Acute 04/10/15) Cervical pain (Chronic 12/18/14) Chronic left shoulder pain (Chronic 02/25/18) Dermatitis herpetiformis (Chronic 06/15/14) gluten intolerance Diverticula of colon (Chronic 10/08/17) Hearing loss (Chronic 03/07/14) Mantoux: positive (Chronic) Meralgia paresthetica of left side (Chronic 06/05/16) Obstructive sleep apnea syndrome (Chronic 03/01/13) mouth appliance Peripheral polyneuropathy (Chronic 06/05/16) Plantar fasciitis, bilateral (Chronic 03/16/17) Strain of right quadriceps muscle, fascia and tendon, initial encounter (Chronic 03/04/18) Elevated LFTs (Acute) Skin tag (Acute) SLAP lesion of left shoulder (Acute) Bursitis of left shoulder (Acute) Medical History CHRIS (obstructive sleep apnea) Surgical History BUNIONECTOMY Colonoscopy - MAC (09/30/17) CONCUSION (~1972) Hx of vasectomy PROCEDURES PTERYGIUM EXCISION 2010 right eye Family History Mother , AGE 72 Diabetes Liver failure Thyroid cancer Father , AGE 66 Essential hypertension Brain cancer Brother Essential hypertension Hyperlipidemia Diabetes Maternal Grandfather Heart disease Pancreatic cancer Paternal Grandfather Neoplasm BONE Bone cancer Maternal Grandmother Diabetes Heart disease Paternal Grandmother , AGE 64 Heart disease Stroke Social History Smoking/Tobacco Use Status: Never Second Hand Exposure: Yes Smoking risk assessment performed?: Yes Alcohol Intake: current Alcohol Intake frequency: a few times a month Alcohol type: hard liquor Drug use: Never Substance use type: does not use Do you need help understanding health information?: Never Sexually active: Yes Do you think of yourself as: straight/heterosexual Current gender identity: male What is your relationship status?: Panel score (0-1 are the most socially isolated patients): 1 Duration: 30-45 minutes/day Frequency: 5-6 times per week Do you feel safe at home: Yes Do you feel safe in your relationship?: Yes Exam Const General: cooperative, healthy appearing, comfortable and no acute distress Orientation: alert, awake and oriented x3 HENMT Head: normal to inspection, normocephalic and atraumatic Face and sinus: normal facial exam Mouth: moist mucous membranes Eyes Conjunctivae: conjunctivae normal Neck Neck: normal visual inspection, full ROM, no meningeal signs, trachea midline and supple Resp Effort & Inspection: normal respiratory effort and able to speak in complete sentences Auscultation: clear to auscultation bilaterally Cardio Rate: regular rate Rhythm: regular rhythm GI Inspection: normal to inspection Palpation: soft, not firm, no guarding, no pulsatile masses and nontender Auscultation: normal bowel sounds Back/Spine/Pelvis Back: No back tenderness Skin General skin exam: no rashes or lesions noted Neuro General: patient alert, patient awake, moves all extremities and no focal motor deficits Cognition: normal cognition Speech: speech normal Gait: normal gait Motor: muscle tone normal throughout, no movement abnormalities noted and no fasciculations Sensory Exam: no sensory deficits noted Extrem General: normal to inspection, full ROM, capillary refill normal, no pedal edema and no calf tenderness Psych Appearance: grossly normal Mental Status: mental status grossly normal Course Vital Signs Vital signs: Vital Signs Temperature 36.9 C 09/21/22 16:12 Pulse 97 H 09/21/22 16:12 Respiratory Rate 18 09/21/22 16:12 Blood Pressure 117/72 09/21/22 16:12 Pulse Oximetry 95 09/21/22 16:12 Temperature 36.9 C 09/21/22 16:12 Pulse 97 H 09/21/22 16:12 Respiratory Rate 18 09/21/22 16:12 Respiratory Effort 09/21/22 16:15 Blood Pressure 117/72 09/21/22 16:12 Blood Pressure Position Sitting 09/21/22 16:12 Pulse Oximetry 95 09/21/22 16:12 Oxygen Delivery Method Room Air 09/21/22 16:12 Oxygen Flow Rate 0 09/21/22 16:12 Pain Level 0 09/21/22 16:12 Lab/Test Results Lab/Test Results: Laboratory Tests Range/Units 09/21/22 09/21/22 09/21/22 18:25 18:25 18:45 WBC (4.4-10.8) 10^3/uL 9.15 RBC (4.36-5.78) 10^6/uL 4.99 Hgb (13.5-17.5) g/dL 15.4 Hct (40.0-50.0) % 45.5 MCV (80-95) fL 91 MCH (27.0-33.0) pg 30.9 MCHC (32.0-36.0) % 33.8 RDW (11.8-14.1) % 12.3 Plt Count (130-400) 10^3/uL 208 MPV (8.0-11.0) fL 10.5 Immature Gran % 0.3 Neutrophils % 94.2 Lymphocytes % 2.2 Monocytes % 3.1 Eosinophils % 0.0 Basophils % 0.2 Nucleated RBC % (0.0-0.3) % 0.0 Absolute Neutrophils (1.2-6.7) 10^3/uL 8.62 H Absolute Lymphocytes (1.2-3.4) 10^3/uL 0.20 L Absolute Monocytes (0.1-0.8) 10^3/uL 0.28 Absolute Eosinophils (0.0-0.7) 10^3/uL 0.00 Absolute Basophils (0.0-0.2) 10^3/uL 0.02 Sodium (136-145) mmol/L 143 Potassium (3.5-5.1) mmol/L 3.2 L Chloride (98-107) mmol/L 114 H Carbon Dioxide (21.0-32.0) mmol/L 24.3 Anion Gap (3-11) mmol/L 4.7 BUN (7-18) mg/dL 20 H Creatinine (0.70-1.30) mg/dL 0.9 Est GFR (CKD-EPI 2020) (mL/min/1.73m2) 100.24 Glucose (74-106) mg/dL 104 Calcium (8.5-10.1) mg/dL 6.4 L Total Bilirubin (0.2-1.0) mg/dL 0.4 AST (15-37) U/L 21 ALT (16-63) U/L 32 Alkaline Phosphatase (46-116) U/L 57 Total Protein (6.4-8.2) g/dL 5.2 L Albumin (3.4-5.0) g/dL 2.8 L Lipase (73-393) U/L 22 Urine Color (Yellow) Yellow Urine Clarity (Clear) Clear Urine pH (5-8) 6.0 Ur Specific Thornton (1.005-1.025) 1.025 Urine Protein (Negative) mg/dL Negative Urine Ketones (Negative) mg/dL Negative Urine Blood (Negative) Negative Urine Nitrite (Negative) Negative Urine Bilirubin (Negative) Negative Urine Urobilinogen (Up TO 0.2) EU/dL 0.2 Ur Leukocyte Esterase (Negative) Negative Urine Glucose (Negative) mg/dL Negative
[2022-09-21] MEDS: Calcium Gluconate 4.65 MEQ/10 ML VIAL 4.65 MG IVP (19:52)
[2022-09-21] MEDS: Potassium Chloride 20 MEQ TABCR 40 MEQ PO (19:52)
[2022-09-21] MEDS: Normal Saline 100 ML 350 ML (19:54)
[2022-09-21 20:30] VITALS: BP 126/71; PULSE 94; RESP 12; O2SAT 98
[2022-09-21] MEDS: Calcium Citrate 950 MG TAB PO (20:30)
[2022-09-21] MEDS: Ondansetron O.D.T. 4 MG TABEF, 3 TABS/BTL PO (21:03)
== END 2022-09-21 21:03 | disposition home or self-care (01) ==
PROVIDERS: Emergency Provider Physician Assistant; PCP Family Medicine
DX: R11.2 Nausea with vomiting, unspecified (principal); E83.51 Hypocalcemia; E87.6 Hypokalemia; I10 Essential (primary) hypertension
CPT/HCPCS: 80053; 83690; 93005; 96361; 96374; 99284; 81003; 85025; 93010; J0610

== ENCOUNTER 2022-10-03 01:49 | Outpatient (CLI) | payer OTHER, SELFPAY ==
[2022-10-03 16:57] LABS: ALT 51 U/L (16-63); AST 26 U/L (15-37); Alkaline Phosphatase 89 U/L (46-116); Anion Gap 7.4 mmol/L (3-11); BUN 15 mg/dL (7-18); Bilirubin, Total 0.4 mg/dL (0.2-1.0); CO2 29.6 mmol/L (21.0-32.0); CREATININE 1.2 mg/dL (0.70-1.30); Calcium 8.9 mg/dL (8.5-10.1); Chloride 104 mmol/L (98-107); Estimated GFR 70.98 (mL/min/1.73m2); Glucose 105 mg/dL (74-106); Potassium 3.8 mmol/L (3.5-5.1); Sodium 141 mmol/L (136-145); Total Protein 7.6 g/dL (6.4-8.2)
== END 2022-10-03 01:50 | disposition home or self-care (01) ==
LOC: LBO 01:49
PROVIDERS: PCP Family Medicine; Visit Provider Family Medicine
DX: E83.51 Hypocalcemia (principal)
CPT/HCPCS: 36415; 80053

== ENCOUNTER → 2023-05-04 01:09 | Outpatient (CLI) | payer OTHER, SELFPAY ==
--- NOTE | 2023-05-04 | DI.MRI_ITS ---
Exam(s) MR CERVICAL SPINE WO EXAM: MR CERVICAL SPINE WO CLINICAL HISTORY: AUTH# [id number], CERVICALGIA M54.2 TECHNIQUE: Multiplanar multisequence MRI of the cervical spine was performed without intravenous con trast. COMPARISON: CR XR CERVICAL SPINE COMP 4-5V from 10/27/2019 FINDINGS: CERVICOMEDULLARY JUNCTION: Intact with no evidence of cerebellar tonsillar ectopia. No obvious abnor mality of the odontoid process. No evidence of Chiari 1 malformation. CERVICAL SPINAL CORD: There is no abnormal signal in the cervical spinal cord and no evidence of foca l cord atrophy nor focal cord swelling. OSSEOUS:There are no cervical fractures evident. No significant osseous lesions in the cervical vert ebrae. INDIVIDUAL LEVELS: C2-3: No disc herniation nor central canal stenosis. No foraminal stenosis. No facet arthropathy. C3-4: No disc herniation nor central canal stenosis.No facet arthropathy. No foraminal stenosis. C4-5: No disc herniation nor central canal stenosis.No facet arthropathy. No foraminal stenosis C5-6: Normal disc height and signal. No disc herniation or central canal stenosis. No foraminal miguelito nosis C6-7: Normal disc height and signal. For, there are symmetrical small bilateral disc protrusions at this level right paracentral and left paracentral, both extending posteriorly 2.5 mm both appearing 5 mm wide. These indent the thecal sac but not the spinal cord and there is no abnormal cord signal a t this level. There are mild degenerative changes in the right facet joint. Left facet unremarkable . C7-T1: No disc herniation nor central canal stenosis. No facet arthropathy.No foraminal stenosis. IMPRESSION: 1. There is small bilateral symmetrical appearing central-paracentral disc protrusions at C6-7 level as described above. These indent the thecal sac but not the spinal cord and there is no central richard l stenosis at this level. Also no significant foraminal stenosis. 2. No abnormal spinal cord signal. No evidence of cord swelling nor cord atrophy. 3. There is mild degenerative change in the right facet joint at C6-7 level. Other facet joints in t he cervical spine appear unremarkable. DATA REPOSITORY:
== END ==
PROVIDERS: PCP Family Medicine; Visit Provider Nurse Practitioner Adult Health
DX: M50.223 Other cervical disc displacement at C6-C7 level
CPT/HCPCS: 72141

== ENCOUNTER → 2023-11-26 02:01 | Outpatient (CLI) | payer OTHER, SELFPAY ==
--- NOTE | 2023-11-26 06:45 | ETT_ITS ---
APPROVED REPORT Exam: Exercise Treadmill Patient Location: Out-Patient Room/Bed: Stress Nurse: Whitley Gómez RN Ordering Provider:BEHZAD MEYERS, Contact Number: [phone] BMI: 28.34 Baseline Rhythm: Sinus Rhythm Indications: SOB w/ exertion Medical History Medical History: CHRIS, HTN Cardiac Medications: Metoprolol Allergies: Naproxen, penicillins, amlodipine, losaratan Cardiac Risk Factors: Family hx, HTN Previous Cardiac Procedures: None Pretest Chest Pain Characteristics: No chest pain Exercise History: Physically active Physical Disabilities: None Lung Sounds: Clear to auscultation Heart Sounds: Regular Stress Test Details Test: Exercise stress testing was performed using a Paramjit protocol. Rest Stress HR Resting HR Supine: 70 bpm Max Heart Rate (APMHR): 163 bpm Resting HR Standin bpm Target HR (85% APMHR): 139 bpm Max HR Achieved: 152 bpm % of APMHR: 93 Recovery HR: 88 bpm HR response to stress: Normal HR response to stress BP Resting BP Supine: 150/80 mmHg Resting BP Standin/88 mmHg Max BP: 210/98 mmHg Recovery BP: 148/82 mmHg BP response to stress: Normal blood pressure response to stress. ECG Resting ECG: Sinus Rhythm Ectopy: None Stress ECG: Sinus Tachycardia ST Change: No significant ST segment changes noted, ST changes V2 Arrhythmia: Occasional PVC's, PAC's Recovery ECG: Sinus Rhythm Recovery ST Change: No significant ST segment changes noted Recovery Arrhythmia: PAC's Comment: ST changes V2 back to baseline Clinical Reason for Termination: Target HR Achieved Stress Symptoms: Mild SOB, 2/10 chest pressure Exercise duration: 08 min06 sec Highest Stage Reached: Stage 3: 3.4 mph at 14% grade. Exercise capacity: 10.16 METs Angina Score: Non-Limiting Rate Pressure Product: [id number] Stress ECG Conclusion 1. Resting EKG was normal 2. Patient exercised on the Paramjit protocol completed a workload of 10.16 METS 3. Normal heart rate and blood pressure response to exercise. The patient achieved 93% of predicted heart rate for age 4. There was no electrocardiographic evidence of myocardial ischemia 5. Rare atrial and ventricular ectopic beats noted Stress Test Summary STAGE Time (mins) Speed (mph) Grade (%) HR BP SpO2 SYMPTOMS METS Supine 70 150/80 Standing 82 154/88 1 3 1.7 10 112 160/80 93 4.5 2 6 2.5 12 126 188/88 7 3 9 3.4 14 150 2/10 chest pressure, SOB (mild) 10 1 min recovery 117 210/98 97 3 min recovery 94 170/88 97 6 min recovery 88 148/82 All symptoms resolved
== END ==
PROVIDERS: PCP Family Medicine; Visit Provider Family Medicine
DX: R06.02 Shortness of breath (principal)
CPT/HCPCS: 93016; 93018; 93017

== ENCOUNTER 2023-12-03 05:24 | Outpatient (CLI) | payer OTHER, SELFPAY ==
[2023-12-03 07:14] LABS: HCT 43.2 % (40.0-50.0); MCH 31.4 pg (27.0-33.0); MCHC 34.7 % (32.0-36.0); MCV 90 fL (80-95); MPV 10.2 fL (8.0-11.0); Platelet Count 193 10^3/uL (130-400); RBC 4.78 10^6/uL (4.36-5.78); RDW 12.3 % (11.8-14.1); RDW-SD 40.8 fL; WBC 5.71 10^3/uL (4.4-10.8)
[2023-12-03 07:46] LABS: ALT 57 U/L (16-63); AST 26 U/L (15-37); Alkaline Phosphatase 77 U/L (46-116); Anion Gap 9.8 mmol/L (3-11); BUN 18 mg/dL (7-18); Bilirubin, Total 0.5 mg/dL (0.2-1.0); CO2 28.2 mmol/L (21.0-32.0); CREATININE 1.1 mg/dL (0.70-1.30); Calcium 9.1 mg/dL (8.5-10.1); Calculated LDL 126 mg/dL (<100); Chloride 104 mmol/L (98-107); Cholesterol 198 mg/dL (<200); Glucose 120 mg/dL (74-106); HDL Cholesterol 58 mg/dL (40-60); Sodium 142 mmol/L (136-145); Total Protein 7.4 g/dL (6.4-8.2); Triglyceride 71 mg/dL (<150)
== END 2023-12-03 05:25 | disposition home or self-care (01) ==
PROVIDERS: PCP Family Medicine; Visit Provider Family Medicine
DX: I10 Essential (primary) hypertension (principal); Z00.00 Encounter for general adult medical examination without abnormal findings
CPT/HCPCS: 36415; 80053; 80061; 85027

== ENCOUNTER → 2023-12-10 04:13 | Outpatient (CLI) | payer OTHER, SELFPAY ==
--- NOTE | 2023-12-10 07:00 | DI.US_ITS ---
APPROVED REPORT EXAM: Comprehensive 2D, Doppler, and color-flow Echocardiogram Patient Location: Out-Patient Teacher Resource: Cynthia García RDCS (AE) Indications: SOB with exertion Other Information Study Quality: Adequate. Technically limited study due to body habitus llimited parasternal imaging.. Conclusion Normal left ventricular wall thickness and chamber size. EF is 54%. Wall motion is normal Normal right ventricular size and function Both atria are normal in size There is no structural or hemodynamically significant valvular disease Estimated right ventricualr systolic pressure is 27 mmHg Wall motion Left Ventricle Technically limited parasternal imaging. The left ventricular systolic function is normal. The left v entricular ejection fraction is within the normal range. There is normal LV segmental wall motion. Th ere is no ventricular septal defect visualized. LVEF is 54%. Right Ventricle The right ventricle is normal size. The right ventricular systolic function is normal. Atria The left atrium size is normal. The right atrium size is normal. The interatrial septum is intact wit h no evidence for an atrial septal defect. Aortic Valve The aortic valve is normal in structure. Aortic valve is trileaflet. There is no aortic valvular sten osis. No aortic regurgitation is present. Mitral Valve The mitral valve is normal in structure. No evidence of mitral valve stenosis. Trace mitral regurgita tion. Tricuspid Valve The tricuspid valve is normal in structure. There is no tricuspid valve stenosis. Trace tricuspid reg urgitation. The RVSP is 27.0 mmHg. Pulmonic Valve The pulmonary valve is normal in structure. There is no pulmonic valvular stenosis. There is no pulmo thais valvular regurgitation. Great Vessels The aortic root is normal in size. The ascending aorta is normal in size. Aortic arch is normal in ca liber. IVC is normal in size and collapses >50% with inspiration. Pericardium There is no pericardial effusion. 2D Dimensions Ao Root d 2.70 cm M: 3.1 - 3.7 Ao Asc Diam d 2.88 cm M: 2.6 - 3.4 M-Mode TAPSE 2.80 cm (M/F) >1.7 Auto EF LV EDV A4C 108.2 mL LV EDV A2C 102.2 mL LV EDV BP 105.6 mL LV ESV A4C 49.7 mL LV ESV A2C 47.1 mL LV ESV BP 48.6 mL LVEF(%) A4C 54.0 % LVEF(%) A2C 53.9 % LVEF(%) BP 54.0 % LV SV A4C 58.4 ml LV SV A2C 55.1 ml LV SV BP 57.0 ml LV CO A4C 3.6 L/min LV CO A2C 3.3 L/min LV CO BP 3.5 L/min HR A4C 62.40 BPM HR A2C 60.10 BPM LV EDV Index (BP) LA Volume LA Length A4C 5.4 cm LA Length A2C 5.5 cm LA Area A4C s 19.05 cm2 LA Area A2C s 16.49 cm2 LA Vol A4C A-L 57.42 mL LA Vol A2C A-L 41.72 mL LA Vol Biplane A-L 49.7 mL LA Vol/BSA A4C A-L LA Vol/BSA A2C A-L LA Vol/BSA BP A-L 18.3 mL/m2 LA Vol A4C MOD 52.4 mL LA Vol A2C MOD 39.6 mL LA Vol BP MOD 46.0 mL RA Volume RA Area A4C 13.6 cm2 RA ESV A4C (A-L) 35.8mL RA Vol/BSA A4C A-L RA Length A4C 4.4 cm RA ESV A4C (MOD) 33.6mL LV Diastology MV E' medial 0.113 (>0.07 m/s) MV E Vmax 1.00 (0.4-1.3 m/s) MV E/E' MED 8.85 (<14) MV A Vmax 1.05 (0.4-1.3 m/s) MV E' lateral 0.082 (>0.1 m/s) E/A Ratio 1.0 MV E/E' LAT 12.22 (<14) MV E' Average 0.098 m/s MV E/E'(average) 10.27 Aortic Valve AoV Vmax 1.57 m/s LVOT Vmax 1.37 m/s AoV Peak Grad 9.8 mmHg LVOT Peak Grad 7.5 mmHg AoV Area (Vmax) 2.74 cm2 LVOT VTI 0.287 m AoV VTI 0.350 m LVOT Mean Grad 4.1 mmHg AoV Mean Ryan. 1.06 m/s LVOT SV 89.90 mL AoV Mean Grad 5.2 mmHg LVOT Diam s 1.95 cm AoV Area (VTI) 2.57 cm2 Velocity Ratio 0.87 Mitral Valve MV DT 198 (160-240 msec) MV Vmax TIPS 0.96 m/s MV Mean Grad 1.6 (<2mmHg) MV VTI 0.373 m Pulmonary Valve PV Vmax 1.09 (0.5-1.5 m/s) RVOT Vmax 0.69 m/s PV Peak Grad 4.7 mmHg RVOT Peak Gr. 1.9 mmHg PV Mean Ryan 0.72 m/s RVOT VTI 0.179 m PV Mean Grad 2.4 mmHg RVOT Mean Gr. 1.2 mmHg Tricuspid Valve RA Pressure 3.00 mmHg TR Vmax 2.45 m/s TV S' 0.13 m/s TR Peak Grad 23.9 mmHg RVSP (TR) 27.0 mmHg
== END ==
PROVIDERS: PCP Family Medicine; Visit Provider Family Medicine
DX: R06.02 Shortness of breath (principal)
CPT/HCPCS: 93306

== ENCOUNTER 2023-12-18 01:08 | Outpatient (CLI) | payer OTHER, SELFPAY ==
[2023-12-18 08:12] LABS: Hemoglobin A1C 5.6 % (<5.7)
[2023-12-21 15:15] LABS: Apolipoprotein A1, S 159 mg/dL (>=120); Apolipoprotein B, S 98 mg/dL (See Comment); Apolipoprotein B/A 1 ratio 0.6 (See Comment)
== END 2023-12-18 01:09 | disposition home or self-care (01) ==
LOC: LBO 01:08
PROVIDERS: PCP Family Medicine; Visit Provider Family Medicine
DX: E78.00 Pure hypercholesterolemia, unspecified (principal); E11.9 Type 2 diabetes mellitus without complications
CPT/HCPCS: 36415; 82172; 83036

== ENCOUNTER 2024-04-14 09:19 | Outpatient (CLI) | payer OTHER, SELFPAY ==
[2024-04-14 09:32] VITALS: BP 145/95; PULSE 68; RESP 18; TEMP 36.9; O2SAT 97
[2024-04-14 09:48] VITALS: O2SAT 97
[2024-04-14 09:50] VITALS: O2SAT 96
[2024-04-14 10:00] VITALS: O2SAT 97
[2024-04-14] MEDS: Lidocaine 2% Pres-Free 5 ML VIAL IJ (10:08)
[2024-04-14] MEDS: Nerve Block Tray 1 EACH MC (10:08)
[2024-04-14] MEDS: methylPREDNISolone ACETATE 40 MG/ML VIAL IJ (10:08)
--- NOTE | 2024-04-14 10:21 | PDOC.PAIN_ITS ---
Date of service: 04/14/24 Time of Service: 10:21 US Guided Injections Type of Ultrasound Guided Injection: Neck Left Levator scapulae and Trapezius muscle and Shoulder Left Trigger Point Injection Pre-Procedural Evaluation Tenderness to the left trapezius and levator scapulae muscles Referral Patient has been referred to the [facility] for Left Levator scapulae, Paraspinous and Trapezius muscle Neck Trigger Point Injection for a chief complaint of Muscle pain Pre-Procedural Pain Score Pre-procedural pain score: 6/10 Reason for Exam Muscle pain Patient Interview Patient was interviewed and medical record reviewed: Yes There were no contraindications to performing an US guided procedure. Risks,expected side effects, potential benefits were reviewed. The patient consent form was signed and witnessed. Standard time out procedure was performed. Patient Safety No notable skin abnormalities at the proposed injection sites. Procedure Description No sedation given for procedure Patient was placed in the prone position and the following Pulse Ox applied. Pre-Procedure ultrasound scanning performed using a Linear 9 MHz probe Site Preparation Chloroprep Local Anesthesia of Lidocaine 2%. A 21 G 3.5 Pajunk ultrasound needle was placed under live US guidance using an in-plane approach to the target area. After visualization of the needle tip at the target area Depo-Medrol 40mg per cc and Lidocaine 2% were used. Total of Injectate/Medication Note: 1 cc of Depomedrol and 3 cc of 2% Lidocaine Negative aspiration for blood. [place] were removed without difficulty. Ultrasound images were captured and stored. Patient Mental Status Patient was alert and awake during procedure Vital Signs Vital signs were stable throughout the procedure and recorded by nursing. Follow Up/Discharge Follow up plans and appointments were discussed with patient. Post procedure instruction was given as documented in nursing documentation. Discharge criteria met and patient discharged from [facility]: Yes Post Procedure Pain Post Procedure Pain: 2/10 Patient tolerated procedure well Procedure Outcome: Successful Trigger Point Injection 3+muscles Non US Guided Injections Procedure Description Patient was placed in the prone position Post Procedure Pain Post Procedure Pain: 2/10
== END 2024-04-14 09:20 | disposition home or self-care (01) ==
LOC: PC 09:20
PROVIDERS: PCP Family Medicine; Visit Provider Preventive Medicine Occupational Medicine
DX: M79.18 Myalgia, other site (principal)
CPT/HCPCS: 20553; J1010

== ENCOUNTER 2024-04-26 02:19 | Outpatient (CLI) | payer OTHER, SELFPAY ==
--- NOTE | 2024-04-26 09:25 | DI.RAD_ITS ---
Exam(s) XR FOOT LT COMPLETE EXAM: XR FOOT LT COMPLETE CLINICAL HISTORY: Left foot pain,[id number]. TECHNIQUE: 2D digital imaging was performed of the left foot. Three images were obtained. AP, obli que and lateral views were obtained. COMPARISON: No exams were available for comparison FINDINGS: BONES: No acute fracture is present. No bony destructive lesion is seen. There is a small enthesophyt e at the posterior calcaneus. JOINTS: No dislocation present. There is a mild persistent hallux valgus deformity. There is been pr ior surgery involving the head of the 1st metatarsal bone. There is narrowing of the 1st MTP joint. SOFT TISSUE: Normal. IMPRESSION: No acute abnormality. Postsurgical and mild degenerative changes seen in the left foot as described above. DATA REPOSITORY: RADIATION DOSE DELIVERED:
== END 2024-04-26 02:39 ==
LOC: DI 02:19
PROVIDERS: PCP Family Medicine; Visit Provider Podiatrist
DX: M79.672 Pain in left foot (principal)
CPT/HCPCS: 73630